=== PATIENT | male | born 1940 | race Caucasian/White ===

== ENCOUNTER 2020-10-28 11:31 | Emergency (ER) | payer OTHER, MEDICARE ==
[2020-10-29 11:08] LABS: SARS-CoV-2 NAA Not Detected (Not Detected)
== END 2020-10-28 16:30 | disposition home or self-care (01) ==
LOC: JVIRT 11:31
DX: Z20.822 Contact with and (suspected) exposure to COVID-19 (principal)
CPT/HCPCS: C9803; Q3014-GT; U0003; U0005